=== PATIENT | female | born 1980 | race Two or more races ===

== ENCOUNTER 2021-03-07 11:50 | Inpatient (IN) | payer MEDICAID, OTHER ==
[~2021-03-07] VITALS: Ht 170.2 cm; Wt 78.0 kg
[2021-03-07] MEDS ORDERED: SODIUM CHLORIDE 0.9% 500 ML IV ONE (12:15)
[2021-03-07] MEDS ORDERED: SODIUM CHLORIDE 0.9% 1,000 ML IV ONE (12:15)
[2021-03-07 13:20] LABS: Basophils # (auto) 0 10 ^3/uL (0-0.2); Basophils % (auto) 0.3 % (0.0-2.0); Eosinophils # (auto) 0 10 ^3/uL (0-0.8); Eosinophils % (auto) 0.7 % (0.0-7.0); Lymphocytes # (auto) 0.6 10 ^3/uL (0.4-5.4); Mean Corpuscular Hemoglobin 28.6 pg (28.0-32.0); Mean Corpuscular Hgb Conc. 33.4 g/dL (32.0-36.0); Mean Corpuscular Volume 85.6 fL (80.0-100.0); Monocytes # (auto) 0.3 10 ^3/uL (0-1.3); Monocytes % (auto) 9.6 % (0.0-12.0); Neutrophils # (auto) 2.5 10 ^3/uL (1.6-8.6); Neutrophils % (auto) 73.4 % (37.0-80.0); Nucleated Red Blood Cells % 0.1 %; Red Blood Cells 4.56 10^6/uL (4.0-5.20); Red Cell Distribution Width 14.1 % (11.8-14.3); White Blood Cell 3.4 10^3/uL (4.4-10.8)
[2021-03-07 13:28] LABS: INR 1.08 (0.9-1.15); Partial Thromboplastin Time 30.9 sec (23.6-33.0)
[2021-03-07 13:30] LABS: Albumin 2.7 g/dL (3.4-5.0); Magnesium 2.6 mg/dL (1.6-2.6); Potassium 3.8 mmol/L (3.5-5.1)
[2021-03-07 13:35] LABS: BUN/Creatinine Ratio 14.1; Bilirubin, Total 0.7 mg/dL (0.2-1.0)
[2021-03-07 14:04] LABS: Beta HCG, Quantitative < 1 mlU/mL (1-3)
[2021-03-07] MEDS ORDERED: DexAMETHasone SOD PHOS 10MG/1ML VIAL INJ IV ONE (15:00)
[2021-03-07] MEDS ORDERED: ASCORBIC ACID 500 MG TAB PO ONE (15:00)
[2021-03-07] MEDS ORDERED: AZITHROMYCIN 500MG/ 250ML 250 ML IV ONE (15:00)
[2021-03-07] MEDS ORDERED: cefTRIAXone 1GM/50ML D5W 50 ML IV ONE (15:00)
[2021-03-07] MEDS ORDERED: CHOLECALCIFEROL (VITD3) 2,000 UNIT CAP/TAB PO ONE (15:00)
[2021-03-07] MEDS ORDERED: ZINC SULFATE 220mg CAP or TAB PO ONE (15:00)
[2021-03-07] MEDS ORDERED: ONDANSETRON HCL 4 MG/2 ML VIAL IV PRN (18:15)
[2021-03-07] MEDS ORDERED: MORPHINE SULFATE INJECTION 2 MG/ML SYRG IV PRN ×2 (18:15)
[2021-03-07] MEDS ORDERED: DOCUSATE SOD 100 MG CAP PO PRN (18:15)
[2021-03-07] MEDS ORDERED: ACETAMINOPHEN 325 MG TAB PO PRN (18:15)
[2021-03-07] MEDS ORDERED: NITROGLYCERIN 0.4 MG SL TAB SL PRN (18:15)
[2021-03-07] MEDS ORDERED: IOHEXOL 350 MG/ML 100ML IJ ONE (18:53)
[2021-03-07 19:40] LABS: Urine Bacteria FEW /hpf (None Seen); Urine Blood 2+ /uL (Negative); Urine Mucus FEW (None Seen); Urine Specific Gravity 1.025 (1.001-1.035); Urine WBC 6 /hpf (0 - 5)
[2021-03-07] MEDS ORDERED: TEMAZEPAM 15 MG CAP PO PRN (22:00)
[2021-03-07] MEDS: ALBUTEROL SULF HFA 90MCG INH 200DOSE IN SCH (22:00)
[2021-03-07 23:26] VITALS: BP 131/56
[2021-03-08 08:03] LABS: Albumin 2.6 g/dL (3.4-5.0); Calcium 8.4 mg/dL (8.5-10.1); Potassium 3.8 mmol/L (3.5-5.1)
[2021-03-08 08:05] LABS: BUN/Creatinine Ratio 15.9
[2021-03-08 08:08] LABS: Bilirubin, Total 0.5 mg/dL (0.2-1.0); Total Protein 6.9 g/dL (6.4-8.2)
[2021-03-08] MEDS: cefTRIAXone 1GM/50ML D5W 50 ML IV SCH (09:10)
[2021-03-08] MEDS ORDERED: cloNIDine HCL 0.1 MG TAB PO ONE (09:30)
[2021-03-08] MEDS ORDERED: ENOXAPARIN SOD 40 MG/0.4 ML SYRINGE SC SCH (10:00)
[2021-03-08] MEDS: ZINC SULFATE 220mg CAP or TAB PO SCH (10:19)
[2021-03-08] MEDS: AZITHROMYCIN 500MG/ 250ML 250 ML IV SCH (10:19)
[2021-03-08] MEDS: ASCORBIC ACID 500 MG TAB PO SCH ×2 (10:20→22:09)
[2021-03-08] MEDS: MULTIPLE VITAMIN TAB PO SCH (10:20)
[2021-03-08] MEDS: DexAMETHasone SOD PHOS 10MG/1ML VIAL INJ IV SCH (11:15)
[2021-03-08] MEDS ORDERED: REMDESIVIR PER PHARMACY 0 ML IV SCH (13:00)
[2021-03-08] MEDS: ALBUTEROL SULF HFA 90MCG INH 200DOSE IN SCH ×3 (13:37→21:20)
[2021-03-08] MEDS ORDERED: REMDESIVIR 200 MG in NS 210ml LOADING DOSE ADULT IV ONE (15:00)
[2021-03-08] MEDS: BUDESONIDE (INHALATION) 180 MCG IH IN SCH (21:18)
[2021-03-08] MEDS: ENOXAPARIN SOD 40 MG/0.4 ML SYRINGE SC SCH (22:10)
[2021-03-09 07:21] LABS: Albumin 2.5 g/dL (3.4-5.0); Calcium 8.4 mg/dL (8.5-10.1); Potassium 3.5 mmol/L (3.5-5.1)
[2021-03-09 07:25] LABS: BUN/Creatinine Ratio 21.2; Bilirubin, Total 0.4 mg/dL (0.2-1.0); Total Protein 6.5 g/dL (6.4-8.2)
[2021-03-09] MEDS: BUDESONIDE (INHALATION) 180 MCG IH IN SCH ×2 (07:28→19:16)
[2021-03-09] MEDS: ALBUTEROL SULF HFA 90MCG INH 200DOSE IN SCH ×3 (07:28→19:16)
[2021-03-09] MEDS: ENOXAPARIN SOD 40 MG/0.4 ML SYRINGE SC SCH ×2 (09:57→21:07)
[2021-03-09] MEDS: ASCORBIC ACID 500 MG TAB PO SCH ×2 (09:57→21:07)
[2021-03-09] MEDS: cefTRIAXone 1GM/50ML D5W 50 ML IV SCH (11:12)
[2021-03-09] MEDS: AZITHROMYCIN 500MG/ 250ML 250 ML IV SCH (11:12)
[2021-03-09] MEDS: DexAMETHasone SOD PHOS 10MG/1ML VIAL INJ IV SCH (11:12)
[2021-03-09] MEDS: ZINC SULFATE 220mg CAP or TAB PO SCH (11:12)
[2021-03-09] MEDS: MULTIPLE VITAMIN TAB PO SCH (11:12)
[2021-03-09 13:56] LABS: Hepatitis A Ab IgM Negative
[2021-03-09 14:20] LABS: Hepatitis B Core IgM Negative
[2021-03-09 14:26] LABS: Hepatitis C Antibody Negative (Negative)
[2021-03-09 15:10] VITALS: BP 126/79
[2021-03-09] MEDS: REMDESIVIR 100mg 100 MG in SODIUM CHL 0.9% 230 ML IV SCH (16:07)
[2021-03-09 22:00] VITALS: BP 104/58
[2021-03-10 05:00] VITALS: BP 101/64
[2021-03-10] MEDS: ALBUTEROL SULF HFA 90MCG INH 200DOSE IN SCH ×3 (06:48→21:54)
[2021-03-10] MEDS: BUDESONIDE (INHALATION) 180 MCG IH IN SCH ×2 (06:48→21:54)
[2021-03-10 09:10] VITALS: BP 118/60
[2021-03-10] MEDS: cefTRIAXone 1GM/50ML D5W 50 ML IV SCH (09:10)
[2021-03-10] MEDS: DexAMETHasone SOD PHOS 10MG/1ML VIAL INJ IV SCH (09:11)
[2021-03-10] MEDS: ENOXAPARIN SOD 40 MG/0.4 ML SYRINGE SC SCH ×2 (09:11→20:40)
[2021-03-10] MEDS: ASCORBIC ACID 500 MG TAB PO SCH ×2 (09:11→20:38)
[2021-03-10] MEDS: ZINC SULFATE 220mg CAP or TAB PO SCH (09:12)
[2021-03-10] MEDS: MULTIPLE VITAMIN TAB PO SCH (09:14)
[2021-03-10] MEDS: AZITHROMYCIN 500MG/ 250ML 250 ML IV SCH (09:15)
[2021-03-10 13:00] VITALS: BP 113/65
[2021-03-10] MEDS: REMDESIVIR 100mg 100 MG in SODIUM CHL 0.9% 230 ML IV SCH (15:17)
[2021-03-10 16:51] VITALS: BP 107/62
[2021-03-10 20:35] VITALS: BP_SYST 107; BP_DIAS 62; BP_DIAS 64
[2021-03-11 04:13] VITALS: BP 91/53
[2021-03-11] MEDS: BUDESONIDE (INHALATION) 180 MCG IH IN SCH ×2 (07:27→19:09)
[2021-03-11] MEDS: ALBUTEROL SULF HFA 90MCG INH 200DOSE IN SCH ×2 (07:27→07:29)
[2021-03-11 08:30] VITALS: BP 122/72
[2021-03-11] MEDS: cefTRIAXone 1GM/50ML D5W 50 ML IV SCH (09:43)
[2021-03-11] MEDS: DexAMETHasone SOD PHOS 10MG/1ML VIAL INJ IV SCH (09:43)
[2021-03-11] MEDS: AZITHROMYCIN 500MG/ 250ML 250 ML IV SCH (09:43)
[2021-03-11] MEDS: ZINC SULFATE 220mg CAP or TAB PO SCH (09:44)
[2021-03-11] MEDS: MULTIPLE VITAMIN TAB PO SCH (09:44)
[2021-03-11] MEDS: ENOXAPARIN SOD 40 MG/0.4 ML SYRINGE SC SCH ×2 (09:44→20:40)
[2021-03-11] MEDS: ASCORBIC ACID 500 MG TAB PO SCH ×2 (09:44→20:40)
[2021-03-11 12:49] VITALS: BP 103/55
[2021-03-11] MEDS: REMDESIVIR 100mg 100 MG in SODIUM CHL 0.9% 230 ML IV SCH (15:09)
[2021-03-11 17:18] VITALS: BP 114/67
[2021-03-11 21:12] VITALS: BP 108/66
[2021-03-12 04:40] VITALS: BP 113/59
[2021-03-12] MEDS: BUDESONIDE (INHALATION) 180 MCG IH IN SCH ×2 (07:29→19:56)
[2021-03-12] MEDS: ALBUTEROL SULF HFA 90MCG INH 200DOSE IN SCH ×3 (07:29→19:56)
[2021-03-12 07:53] LABS: Albumin 2.6 g/dL (3.4-5.0); Calcium 8.1 mg/dL (8.5-10.1); Potassium 3.9 mmol/L (3.5-5.1)
[2021-03-12 07:57] LABS: Bilirubin, Total 0.3 mg/dL (0.2-1.0); Total Protein 5.7 g/dL (6.4-8.2)
[2021-03-12 08:15] VITALS: BP 111/55
[2021-03-12] MEDS: cefTRIAXone 1GM/50ML D5W 50 ML IV SCH (08:59)
[2021-03-12 09:00] VITALS: BP 111/55
[2021-03-12] MEDS: AZITHROMYCIN 500MG/ 250ML 250 ML IV SCH (10:09)
[2021-03-12] MEDS: ZINC SULFATE 220mg CAP or TAB PO SCH (10:09)
[2021-03-12] MEDS: DexAMETHasone SOD PHOS 10MG/1ML VIAL INJ IV SCH (10:09)
[2021-03-12] MEDS: MULTIPLE VITAMIN TAB PO SCH (10:10)
[2021-03-12] MEDS: ENOXAPARIN SOD 40 MG/0.4 ML SYRINGE SC SCH (10:10)
[2021-03-12] MEDS: ASCORBIC ACID 500 MG TAB PO SCH (10:10)
[2021-03-12 13:00] VITALS: BP 123/63
[2021-03-12] MEDS: REMDESIVIR 100mg 100 MG in SODIUM CHL 0.9% 230 ML IV SCH (15:07)
[2021-03-12 16:57] VITALS: BP 122/70
[2021-03-12 19:25] VITALS: BP 135/82
== END 2021-03-12 20:48 | disposition home or self-care (01) | DRG 137 ==
LOC: ER 11:50 → EDBD 11:50 → TELE 18:07 → TELE-E-ADS 03-09 14:45
PROVIDERS: ADMIT Internal Medicine; ATTEND Internal Medicine
PROC: XW033E5 Introduction of Remdesivir Anti-infective into Peripheral Vein, Percutaneous Approach, New Technology Group 5 (ICD-10-PCS; principal; 2021-03-08)
DX: U07.1 COVID-19 (principal); J96.01 Acute respiratory failure with hypoxia; J12.82 Pneumonia due to coronavirus disease 2019; E44.0 Moderate protein-calorie malnutrition; J45.909 Unspecified asthma, uncomplicated; E66.01 Morbid (severe) obesity due to excess calories; J98.11 Atelectasis; R74.01 Elevation of levels of liver transaminase levels; Z68.26 Body mass index [BMI] 26.0-26.9, adult
CPT/HCPCS: 36415; 71045; 71275; 76705; 80053; 80074; 81001; 83605; 83735; 83880; 84443; 84484; 84702; 85025; 85379; 85610; 85730; 87040; 87426; 93005; 93306; 94640; 96365; 96366; 96368; 96375; 99291; G0378; J0696; J1100